=== PATIENT | male | born 1980 | race Caucasian/White ===

== ENCOUNTER 2020-08-03 10:46 | Observation (INO) | payer OTHER ==
[~2020-08-03] VITALS: Ht 175.3 cm; Wt 100.2 kg
[2020-08-03 10:52] VITALS: BP 138/93
[2020-08-03] MEDS ORDERED: DYANAVEL X2.5 MG/1 M PO (10:55)
[2020-08-03] MEDS ORDERED: PEPCID20 MG PO (10:56)
[2020-08-03 11:12] LABS: ABSOLUTE BASOPHILS 0.1 thou/uL (0.0-0.2); ABSOLUTE EOSINOPHILS 0.2 thou/uL (0.0-0.7); ABSOLUTE LYMPHOCYTES 2.6 thou/uL (0.8-5.3); ABSOLUTE MONOCYTES 0.6 thou/uL (0.0-1.2); ABSOLUTE NEUTROPHILS 3.8 thou/uL (1.6-8.1); BASOPHILS 0.7 %; EOSINOPHILS 2.2 %; HEMATOCRIT 51.3 % (42.0-52.0); HEMOGLOBIN 17.9 gm/dL (14.0-18.0); LYMPHOCYTES 36.7 %; MCH 30.1 pg (26.0-34.0); MCHC 34.8 g/dL (28.0-37.0); MCV 86.4 fL (80.0-100.0); MONOCYTES 8.4 %; NUCLEATED RBCS 0 /100WBC; PLATELET COUNT* 229 thou/uL (150-400); RBC 5.93 mil/uL (4.50-6.00); RDW-CV 12.5 % (10.5-14.5); WBC 7.2 thou/uL (4.0-11.0)
[2020-08-03 11:20] LABS: CALCIUM 8.8 mg/dL (8.5-10.1); CREATININE 0.8 mg/dL (0.6-1.3); POTASSIUM 3.8 mmol/L (3.5-5.1)
[2020-08-03 11:25] LABS: ALBUMIN 3.9 g/dL (3.4-5.0); TOTAL BILIRUBIN 0.3 mg/dL (<0.1-1.0); TOTAL PROTEIN 7.8 g/dL (6.4-8.2)
[2020-08-03 15:40] VITALS: BP 110/69
--- NOTE | 2020-08-03 15:40 | EKG ---
[place] [address] ELECTROCARDIOGRAM REPORT Name: ELLEN ALDRICH Room: [address]#: [id number] Admission: 08/03/20 Attend Phys: Jose Flores, Discharge: Date of : 82 Date of Service: 08/03/20 1050 Report #: [id number] THIS REPORT FOR: //name// [facility] ED Test Date: 2020-08-03 Test Time: 10:50:06 Pat Name: ELLEN ALDRICH Department: Room: [facility] Gender: M Gym Teacher: DONOVAN : 1980 Requested By: José Miguel Alvarez Order Number: [id number] MD: Eusebio Piedra Measurements Intervals [place] Rate: 70 P: 3 [place]: 144 QRS: -34 QRSD: 102 T: 13 QT: 359 QTc: 388 Interpretive Statements Sinus rhythm Left axis deviation Abnormal R-wave progression, early transition No previous ECG available for comparison Electronically Signed On 08-03-2020 15:40:26 CDT by Eusebio Piedra [email or web address] <ELECTRONICALLY SIGNED> By: Eusebio Piedra MD, [facility] 08/03/20 1540 1050 1050 Eusebio Piedra MD, [facility] /EPI
[2020-08-03 16:26] VITALS: BP 112/57
[2020-08-03 19:19] LABS: AMP/METHAMP Negative (Negative); BARBITURATES Negative (Negative); BENZODIAZEPINES Negative (Negative); COCAINE Negative (Negative); METHADONE Negative (Negative); OPIATES Negative (Negative); PCP Negative (Negative); THC Negative (Negative)
--- NOTE | 2020-08-03 19:33 | NUR ---
I ASSUMED CARE OF THE PATIENT AN ADMISSION FROM THE ED AT 1600. HE IS ALERT AND ORIENTED X4 AND IS UP AD JUANA. BED IS IN THE LOW LOCKED POSITION AND CALL LIGHT IS IN REACH. HOURLY ROUNDING IS COMPLETED AND PATIENT NEEDS ARE MET. PATIENT CLAIMS THAT LIFE HAS BEEN STRESSFUL LATELY WITH SOME FIGHTS AT HOME, FINANCIAL ISSUES, AND MOTHER MOVED IN WITH HIS IMMEDIATE FAMILY. HE ALSO STARTED A LIST OF SUPPLEMENTS 3 WEEKS AGO AND ADDED TESTOSTERONE SHOTS A FEW MONTHS AGO. HE IS ALSO TAKING A NEW DIET PILL. ALL NUMBNESS IN THE LEFT ARM HAS SUBSIDED. URINE WAS SENT TO LAB. HE WILL BE NPO AT MIDNIGHT AND STRESS ECHO SHEET WAS PASSED ON IN REPORT. HIS HEMOGLOBIN IS ALSO HIGH AND HE SAID FACTOR 5 RUNS IN HIS FAMILY AND HAS NEVER BEEN TESTED. WILL CONTINUE TO MONITOR.
[2020-08-03 20:00] VITALS: BP 124/77
[2020-08-03 23:50] VITALS: BP 130/82
[2020-08-04 04:30] VITALS: BP 120/69
[2020-08-04 05:15] LABS: ABSOLUTE EOSINOPHILS 0.2 thou/uL (0.0-0.7); ABSOLUTE LYMPHOCYTES 3.2 thou/uL (0.8-5.3); ABSOLUTE MONOCYTES 0.6 thou/uL (0.0-1.2); ABSOLUTE NEUTROPHILS 2.7 thou/uL (1.6-8.1); BASOPHILS 0.7 %; EOSINOPHILS 3.3 %; HEMATOCRIT 48.3 % (42.0-52.0); HEMOGLOBIN 16.8 gm/dL (14.0-18.0); LYMPHOCYTES 47.2 %; MCH 29.7 pg (26.0-34.0); MCHC 34.8 g/dL (28.0-37.0); MCV 85.3 fL (80.0-100.0); MONOCYTES 8.5 %; MPV 7.6 fl. (7.2-11.1); NUCLEATED RBCS 0 /100WBC; PLATELET COUNT* 237 thou/uL (150-400); POLYS 40.3 %; RBC 5.66 mil/uL (4.50-6.00); RDW-CV 12.5 % (10.5-14.5); WBC 6.8 thou/uL (4.0-11.0)
[2020-08-04 05:35] LABS: CALCIUM 8.5 mg/dL (8.5-10.1); CREATININE 0.9 mg/dL (0.6-1.3)
--- NOTE | 2020-08-04 06:56 | NUR ---
ASSUMED PT CARE AT 1930. ASSESSMENT COMPLETED CHARTED. ABLE TO MAKE NEEDS KNOWN. UP INDEPENDENTLY IN ROOM. NO C/O PAIN OR DISCOMFORT. C/O HEARTBURN AND NOTIFIED DR WITH ORDERS GIVEN. RELIEF NOTED. RESTING IN BED ALL NIGHT. NPO AT MIDNIGHT. CALL LIGHT WITHIN REACH. WILL CONTINUE TO MONITOR.
[2020-08-04 08:00] VITALS: BP 113/67
[2020-08-04 13:27] VITALS: BP 126/80
--- NOTE | 2020-08-04 13:37 | NUR ---
PT ADMITTED WITH CHEST PAIN. PT LIVES HOME WITH FAMILY. INDEPENDENT WITH CARES, DRIVES AND IS EMPLOYEED. PT HAS NO DMES. AND NO CURRENT CM D/C NEEDS.
--- NOTE | 2020-08-04 13:47 | EXE ---
[place] [address] STRESS ECHOCARDIOGRAM Name: MEGHAARIAVAMSIELLEN Room: [address] M.R.#: [id number] Admission: 08/03/20 Attend Phys: Jose Flores, Discharge: Date of : 82 Date of Service: 08/04/20 1347 Report #: [id number] THIS REPORT FOR: cc: KRISTY YOUNG MD, JESSE MD Holkins, John M. MD [facility] ~ APPROVED REPORT Study performed: 08/04/2020 11:25:41 Exam: Stress Echocardiogram Indication: Chest pain Patient Location: In-Patient Stress Nurse: Fatoumata Wilkinson RN Room #: [id number] Supervising Physician: Leonard Chaves MD Ht: 5 ft 9 in HR: 66 bpm BP: 120/74 mmHg Medical History Cardiac Risk Factors: FHX of CAD, Tobacco History (Current/Recent) Procedure The patient underwent an Exercise Stress Test using the Noman Protocol. Blood pressure, heart rate, and EKG were monitored. An Echocardiogram was performed by concrete technician in four stages in quad fashion. At peak stress, four selected images were obtained and placed side by side with resting images for comparison. Stress Test Details Stress Test: Exercise stress testing was performed using a Noman protocol. HR Resting HR: 66 bpm Max Heart Rate (APMHR): 181 bpm Max HR Achieved: 179 bpm Target HR (85% APMHR): 153 bpm % of APMHR: 98 Recovery HR: 106 bpm HR response to stress: Normal HR response to stress BP Resting BP: 120/74 mmHg Max BP: 209/99 [place] [address] STRESS ECHOCARDIOGRAM Name: JASMINELLEN AGUSTIN Room: [address]#: [id number] Admission: 08/03/20 Attend Phys: Jose Flores, Discharge: Date of : 82 Date of Service: 08/04/20 1347 Report #: [id number] Recovery BP: 134/72 mmHg BP response to stress: Normal blood pressure response to stress. ECG Resting ECG: sinus rhythm, minor IVCD Stress ECG: no ischemic st-t changes Arrhythmia: none observed Recovery ECG: no ischemic st-t changes Recovery Arrhythmia: no arrhythmia Clinical Reason for Termination: Completed protocol Exercise duration: 9 min 30 sec Highest Stage Achieved: Stage 4: 4.2 mph at 16% grade. Exercise capacity: 10.97 METs Pre-Stress Echo The resting Echocardiogram showed normal left ventricular contractility with an estimated Ejection Fraction of about 55-60%. Normal wall motion in all segments on baseline images. Post-Stress Echo The stress Echocardiogram showed normal left ventricular contractility with an estimated Ejection Fraction of about >70%. Normal augmentation of wall motion in all segments on post stress images. Conclusion Clinical Response: Non-ischemic Exercise Capacity: Average Stress ECG Response: Non-ischemic Stress Echo Images: Non-ischemic Other Information Study Quality: Good <ELECTRONICALLY SIGNED> By: Eusebio Piedra MD, [facility] 08/04/20 1347 1347 1347 Eusebio Piedra MD, FACC /INF
[2020-08-04 15:14] VITALS: BP 126/80
--- NOTE | 2020-08-04 15:39 | NUR ---
PT DISCHGARGED HOME WITH ALL BELONGINGS ACCOMPANIED BY . PT UP IN HIS ROOM WITH STEADY. PT DISCHARGED HOME WITH ALL BELONGINGS. SALINE LOCK REMOVED WITH HUB INTACT. PT HAS GOOD UNDERSTnding OF DISCHARGE INSTRUCTIONS.
== END 2020-08-04 15:15 | disposition home or self-care (01) ==
LOC: M.ERS 10:46 → M.TBA-ER 11:53 → M.2W 16:09
PROVIDERS: Emergency Medicine; ADMIT Internal Medicine; ATTEND Internal Medicine
DX: R07.89 Other chest pain (principal); Z20.822 Contact with and (suspected) exposure to COVID-19; G47.33 Obstructive sleep apnea (adult) (pediatric); K21.9 Gastro-esophageal reflux disease without esophagitis; Z86.73 Personal history of transient ischemic attack (TIA), and cerebral infarction without residual deficits; Z86.2 Personal history of diseases of the blood and blood-forming organs and certain disorders involving the immune mechanism; Z79.899 Other long term (current) drug therapy